=== PATIENT | female | born 2005 | race Hispanic/Latino ===

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

== ENCOUNTER 2024-01-12 20:01 | Emergency (ER) | payer SELFPAY, OTHER ==
[2024-01-12 21:23] LABS: #Basophils 0.03 10x3/uL (0.0-0.2); %Basophils 0.2 % (0.0-1.0); %Eosinophils 0.6 % (0.0-10.0); %Lymphocytes 21.3 % (28.0-48.0); %Monocytes 5.6 % (0.0-4.0); %Neutrophils 71.9 % (31.0-61.0); Hematocrit 40.6 % (36.0-47.0); Hemoglobin 13.7 g/dL (12.0-16.0); Mean Corpuscular HGB CONC 33.7 g/dL (32.0-36.0); Mean Corpuscular Volume 85.8 fL (78.0-98.0); Mean Platelet Volume 10.4 fL (7.4-10.4); Platelet Count 257 10x3/uL (130-400); RBC Distribution Width 12.9 % (11.5-14.5); Red Blood Cell (RBC) Count 4.73 mill/uL (4.00-5.20)
[2024-01-12 21:37] LABS: ALT (SGPT) 48 U/L (8-55); AST (SGOT) 24 U/L (5-30); Albumin 4.1 g/dL (3.5-5.0); Alkaline Phosphatase 82 U/L (40-100); Anion Gap 13 mmol/L (10-20); BUN (Urea Nitrogen) 10 mg/dL (8.4-21.0); Bilirubin, Total 0.3 mg/dL (0.2-1.2); Calc. Creatinine Clearance 0 mL/min (70-130); Calcium 9.3 mg/dL (7.8-10.44); Carbon Dioxide 21 mmol/L (22-29); Chloride 109 mmol/L (98-107); Estimated GFR 128; Globulin 3.2 g/dL (2.4-3.5); Glucose 92 mg/dL (70-105); Lipase 18 U/L (8-78); Potassium 4.2 mmol/L (3.5-5.1); Protein, Total 7.3 g/dL (6.0-8.3); Sodium 139 mmol/L (136-145)
[2024-01-12 21:39] LABS: PTT 26.3 sec (22.9-36.1); Prothrombin Time 12.9 sec (12.0-14.7)
[2024-01-12 21:41] LABS: BHCG - Serum Negative (NEGATIVE); Pregs Control Background? CLEAR/WHITE (CLR/WHITE); Pregs Control Bar Appear? YES (CONTROL BAR)
[2024-01-12] MEDS ORDERED: Acetaminophen 500 MG TAB ONE (23:04)
[2024-01-13 01:39] LABS: Bilirubin Negative (Negative); Blood, Urine Negative (Negative); CAUTI Indications for Culture Dysuria,urgency,freq; Clarity Clear (Clear); Glucose, Urine (Dipstick) Normal (Negative); Ketone, Urine 40 mg/dL (Negative); Leukocyte Negative Leu/uL (Negative); Nitrite Negative (Negative); Protein, Urine (Dipstick) Negative (Neg-Trace); RBC/HPF 0-3 HPF (0-3); Specific Gravity, Urine 1.023 (1.002-1.036); Squamous Epithelial 0-3 HPF (0-3); Urobilinogen Normal mg/dL (Less than 2); WBC/HPF 0-3 HPF (0-3)
[2024-01-13 01:40] LABS: Bacteria/HPF 1+ HPF (None Seen)
[2024-01-13 01:41] LABS: Urine Culture Reflex No No
== END 2024-01-13 01:58 | disposition home or self-care (01) ==
LOC: ERS 20:01
DX: R10.9 Unspecified abdominal pain (principal); Z55.6 Problems related to health literacy; V89.2XXA Person injured in unspecified motor-vehicle accident, traffic, initial encounter
CPT/HCPCS: 36415; 71045; 74176; 80053; 81001; 83690; 84703; 85025; 85610; 85730